=== PATIENT | female | born 1965 | race Caucasian/White ===

== ENCOUNTER 2017-03-23 01:26 | Emergency (ER) | payer OTHER ==
[2017-03-23 01:34] VITALS: RESP 18; TEMP 97.8
[2017-03-23] MEDS ORDERED: ONDANSETRON 4 MG/2 ML VIAL IVP STA (01:51)
[2017-03-23] MEDS ORDERED: LORazepam 2 MG/ML INJ IV STA ×2 (01:51→03:54)
--- NOTE | 2017-03-23 01:57 | ED ---
General Adult HPI - General Chief complaint: Anxiety Stated complaint: anxiety Time Seen by Provider: 03/23/17 01:26 Source: patient, RN notes reviewed Mode of arrival: ambulatory Limitations: no limitations - History of Present Illness Initial comments: This is a 51-year-old female who presents emergency department after having had breast surgery recently. Patient states every night she tried to go to sleep but she can't sleep she feels as though she's worrying about infection and she is not happy with the surgery. Patient states she's got about 6 hours of sleep over the last 3 nights. Patient states she was given some Xanax by her psychiatrist to help with some of her anxiety and it has not helped. Patient now is afraid to take the Xanax because she is afraid his scrotum also some of her other medications and she is afraid to take the pain mostly she's also afraid those might mess up her other medications. Patient denies any shortness of breath or difficulty breathing. Patient denies any chest pain. Patient states both breasts are tender but equally so. Patient does not notice any areas of redness or any drainage or leakage. Patient states she's mildly nauseous but has not vomited she denies any diarrhea but having some loose stools ear patient does not have any abdominal pain patient has no leg swelling or calf tenderness. - Related Data Home Medications Medication Instructions Recorded Confirmed DULoxetine HCL [DULoxetine HCL] 1 tab PO HS 12/28/14 12/28/14 Lisinopril-Hctz 20-25 mg 1 tab PO HS 12/28/14 12/28/14 [Zestoretic 20-25] traZODone HCL [Trazodone HCl] 1 tab PO HS 12/28/14 12/28/14 Previous Rx's Medication Instructions Recorded Naproxen [Naprosyn] 500 mg PO Q12HR PRN #20 tab 12/28/14 traMADol HCl [Ultram] 50 mg PO Q4H PRN #15 tab 12/28/14 Allergies Allergy/AdvReac Type Severity Reaction Status Date / Time No Known Allergies Allergy Verified 03/23/17 01:34 Review of Systems ROS Statement: Those systems with pertinent positive or pertinent negative responses have been documented in the HPI. ROS Other: All systems not noted in ROS Statement are negative. Past Medical History Past Medical History: Hypertension History of Any Multi-Drug Resistant Organisms: None Reported Past Surgical History: Orthopedic Surgery Additional Past Surgical History / Comment(s): Breast reduction in 03/2017 Past Psychological History: Depression Smoking Status: Never smoker Past Alcohol Use History: Rare Past Drug Use History: None Reported General Exam - General Exam Comments Initial Comments: GENERAL: Patient is well-developed and well-nourished. Patient is nontoxic and well- hydrated and is in mild distress. ENT: Neck is soft and supple. No significant lymphadenopathy is noted. Oropharynx is clear. Moist mucous membranes. EYES: The sclera were anicteric and conjunctiva were pink and moist. Extraocular movements were intact and pupils were equal round and reactive to light. Eyelids were unremarkable. PULMONARY: Unlabored respirations. Good breath sounds bilaterally. No audible rales rhonchi or wheezing was noted. CARDIOVASCULAR: There is a regular rate and rhythm without any murmurs gallops or rubs. ABDOMEN: Soft and nontender with normal bowel sounds. No palpable organomegaly was noted. There is no palpable pulsatile mass. SKIN: Skin is clear with no lesions or rashes and otherwise unremarkable. NEUROLOGIC: Patient is alert and oriented x3. Cranial nerves II through XII are grossly intact. Motor and sensory are also intact. Normal speech, volume and content. Symmetrical smile. MUSCULOSKELETAL: Normal extremities with adequate strength and full range of motion. No lower extremity swelling or edema. No calf tenderness. LYMPHATICS: No significant lymphadenopathy is noted PSYCHIATRIC: Patient is very anxious Limitations: no limitations Course Vital Signs 03/23/17 01:29 Temperature 97.8 F Pulse Rate 79 Respiratory 18 Rate Blood Pressure 173/97 O2 Sat by Pulse 99 Oximetry Medical Decision Making - Medical Decision Making EKG shows normal sinus rhythm at 71 bpm IA interval is 176 QRS is 86 QT interval 396 QTC is 4:30. Patient's EKG shows no ST segment elevation or depression. I'll back into reexamine the patient she stated her symptoms had resolved and she felt much better at this time. - Lab Data Result diagrams: 03/23/17 02:35 03/23/17 02:35 Lab Results 03/23/17 03/23/17 Range/Units 02:35 02:35 WBC 8.7 (3.8-10.6) k/uL RBC 3.93 (3.80-5.40) m/uL Hgb 12.0 (11.4-16.0) gm/dL Hct 34.9 (34.0-46.0) % MCV 88.9 (80.0-100.0) fL MCH 30.4 (25.0-35.0) pg MCHC 34.2 (31.0-37.0) g/dL RDW 12.5 (11.5-15.5) % Plt Count 466 H (150-450) k/uL Neutrophils % 63 % Lymphocytes % 28 % Monocytes % 5 % Eosinophils % 2 % Basophils % 1 % Neutrophils # 5.5 (1.3-7.7) k/uL Lymphocytes # 2.5 (1.0-4.8) k/uL Monocytes # 0.4 (0-1.0) k/uL Eosinophils # 0.1 (0-0.7) k/uL Basophils # 0.1 (0-0.2) k/uL Sodium 144 (137-145) mmol/L Potassium 3.8 (3.5-5.1) mmol/L Chloride 108 H (98-107) mmol/L Carbon Dioxide 22 (22-30) mmol/L Anion Gap 14 mmol/L BUN 18 H (7-17) mg/dL Creatinine 0.66 (0.52-1.04) mg/dL Est GFR (MDRD) Af Amer >60 (>60 ml/min/1.73 sqM) Est GFR (MDRD) Non-Af >60 (>60 ml/min/1.73 sqM) Glucose 115 H (74-99) mg/dL Calcium 10.0 (8.4-10.2) mg/dL Total Bilirubin 0.5 (0.2-1.3) mg/dL AST 24 (14-36) U/L ALT 46 (9-52) U/L Alkaline Phosphatase 97 (38-126) U/L Total Protein 7.5 (6.3-8.2) g/dL Albumin 4.4 (3.5-5.0) g/dL Disposition Clinical Impression: Acute anxiety Disposition: HOME SELF-CARE Instructions: Generalized Anxiety Disorder (ED) Referrals: Marco Mantilla MD [Primary Care Provider] - 1-2 days Time of Disposition: 03:54
[2017-03-23] MEDS ORDERED: SODIUM CHLORIDE 0.9% 1,000 ML IV STA (02:44)
[2017-03-23 03:05] LABS: Basophils # (A) 0.1 k/uL (0-0.2); Basophils % (A) 1 %; Eosinophils # (A) 0.1 k/uL (0-0.7); Eosinophils % (A) 2 %; HCT 34.9 % (34.0-46.0); Lymphocytes # (A) 2.5 k/uL (1.0-4.8); Lymphocytes % (A) 28 %; MCH 30.4 pg (25.0-35.0); MCHC 34.2 g/dL (31.0-37.0); MCV 88.9 fL (80.0-100.0); Monocytes # (A) 0.4 k/uL (0-1.0); Monocytes % (A) 5 %; Neutrophils # (A) 5.5 k/uL (1.3-7.7); Neutrophils % (A) 63 %; Platelet Count 466 k/uL (150-450); RBC 3.93 m/uL (3.80-5.40); RDW 12.5 % (11.5-15.5); WBC 8.7 k/uL (3.8-10.6)
[2017-03-23 03:13] LABS: ALT 46 U/L (9-52); AST 24 U/L (14-36); Albumin 4.4 g/dL (3.5-5.0); Alkaline Phosphatase 97 U/L (38-126); Anion Gap 14 mmol/L; Blood Urea Nitrogen 18 mg/dL (7-17); Carbon Dioxide 22 mmol/L (22-30); Chloride 108 mmol/L (98-107); Glucose 115 mg/dL (74-99); Potassium 3.8 mmol/L (3.5-5.1); Sodium 144 mmol/L (137-145); Total Bilirubin 0.5 mg/dL (0.2-1.3); Total Protein 7.5 g/dL (6.3-8.2)
[2017-03-23 04:10] VITALS: BP 133/73; PULSE 75
== END 2017-03-23 04:10 | disposition home or self-care (01) ==
LOC: EC 01:26
DX: F41.9 Anxiety disorder, unspecified (principal); R11.0 Nausea; F32.9 Major depressive disorder, single episode, unspecified; I10 Essential (primary) hypertension; Z79.899 Other long term (current) drug therapy
CPT/HCPCS: 36415; 93005; 80053; 85025; 99283; 96374; 96375; 96376; 96361; J2060; J2405

== ENCOUNTER → 2018-06-04 | Outpatient (CLI) | payer OTHER ==
--- NOTE | 2018-06-04 15:14 | US ---
EXAMINATION TYPE: US transvaginal DATE OF EXAM: 06/04/2018 COMPARISON: NONE CLINICAL HISTORY: R10.12 Female pelvic pain. PMB - spotting for ongoing for 2 months TECHNIQUE: TV. Date of LMP: August 2015 EXAM MEASUREMENTS: Uterus: 7.2 x 4.4 x 3.3cm Endometrial Stripe: 0.3m Right Ovary: 2.3 x 1.4 x 1.5cm Left Ovary: 1.4 x 1.0 x 1.1cm 1. Uterus: Anteverted 1.2cm probable fibroid near fundal portion of endometrium, 2.1cm left sided fibroid seen 2. Endometrium: wnl 3. Right Ovary: wnl 4. Left Ovary: wnl 5. Bilateral Adnexa: wnl 6. Posterior cul-de-sac: wnl IMPRESSION: 1. There is a 1.2 and 2.1 cm hypoechoic nodule within the myometrium near the fundus and left body of the uterus respectively suggestive of uterine fibroid. This could be correlated with MRI as clinical ly warranted to exclude other etiologies.
== END ==
LOC: RADUSWWP 14:18
PROVIDERS: ATTEND Family Medicine
DX: N85.8 Other specified noninflammatory disorders of uterus (principal)
CPT/HCPCS: 76830

== ENCOUNTER → 2019-03-11 | Outpatient (CLI) | payer OTHER ==
[2019-03-11 16:07] LABS: Basophils # (A) 0.1 k/uL (0-0.2); Basophils % (A) 1 %; Eosinophils # (A) 0.3 k/uL (0-0.7); Eosinophils % (A) 4 %; HCT 38.4 % (34.0-46.0); Lymphocytes # (A) 2.4 k/uL (1.0-4.8); Lymphocytes % (A) 34 %; MCH 30.7 pg (25.0-35.0); MCHC 33.8 g/dL (31.0-37.0); MCV 90.9 fL (80.0-100.0); Mean Platelet Volume 7.7; Monocytes # (A) 0.3 k/uL (0-1.0); Monocytes % (A) 4 %; Neutrophils # (A) 3.8 k/uL (1.3-7.7); Neutrophils % (A) 55 %; Platelet Count 328 k/uL (150-450); RBC 4.22 m/uL (3.80-5.40); RDW 12.3 % (11.5-15.5); WBC 6.9 k/uL (3.8-10.6)
== END | disposition home or self-care (01) ==
LOC: LABPAT 15:01
PROVIDERS: ATTEND Orthopaedic Surgery
DX: Z01.818 Encounter for other preprocedural examination (principal); Z01.812 Encounter for preprocedural laboratory examination; M75.42 Impingement syndrome of left shoulder
CPT/HCPCS: 36415; 80051; 85025; 93005

== ENCOUNTER 2019-03-13 09:57 | Day surgery (SDC) | payer OTHER ==
[2019-03-11 10:23] VITALS: BMI 40.7
--- NOTE | 2019-03-12 11:02 | HP ---
HISTORY AND PHYSICAL CHIEF COMPLAINT: Left shoulder pain. 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 She is having difficult time with any attempted overhead use and at night. She has tried anti- inflammatories and therapy without much relief. She notes it significantly limits her. PAST MEDICAL HISTORY: Significant for hypertension and depression. PAST SURGICAL HISTORY: Significant for carpal tunnel surgery, breast reduction. CURRENT MEDICATIONS: 1. Ibuprofen. 2. Lunesta. 3. Cymbalta. 4. Hydrochlorothiazide. 5. Lisinopril. ALLERGIES: She has allergies to MOBIC. FAMILY HISTORY: Noncontributory. SOCIAL HISTORY: Negative for current tobacco or alcohol use. REVIEW OF SYSTEMS: Sixteen-point review of systems otherwise reviewed and is noncontributory. PHYSICAL EXAMINATION: On examination, the patient is approximately 5 feet 3 inches, 230 pounds of endomorphic habitus. HEENT exam is nonfocal. Neck is supple. On examination of her left shoulder, she is tender about the anterior subacromial space. She has mild subacromial crepitus. Active range of motion forward elevation 145 degrees, external rotation with arm at side 70 degrees, internal rotation to L4. Motor strength is 5 minus over 5 for abduction and external rotation. Impingement test, Neer test, and Speed test are positive. Her distal neurovascular exam appears intact in the left upper extremity. MRI report left shoulder 02/04/2019 shows evidence of a high-grade articular surface tear of the supraspinatus along with biceps pathology and acromioclavicular joint arthritis. Moderate glenohumeral joint arthritis is also noted. IMPRESSION: 1. Left shoulder impingement with symptomatic partial-thickness rotator cuff tear. 2. Left proximal bicipital tendinosis. 3. Left acromioclavicular joint arthritis/glenohumeral joint arthritis. RECOMMENDATIONS: I talked to the patient at length regarding her condition along with treatment options. At this point, she remains quite symptomatic despite conservative measures. After thorough discussion, she opts to proceed with surgery. We will plan to proceed with arthroscopic evaluation of the left shoulder with probable subacromial decompression, rotator cuff debridement versus repair, biceps tenotomy, and possible distal clavicular resection. We will likely perform that as an outpatient procedure. Risks and benefits were discussed at length in layman's terms. MMODL / IJN: [id number] /
[~2019-03-13 09:57] MED LIST: DEXAMETHASONE SOD PHOSPHATE 10 MG/ML 1 ML VIAL IV ONE; HYDROmorphone 0.5 MG/0.5 ML SYRINGE IVP PRN; LACTATED RINGERS 1,000 ML IV SCH; MIDAZOLAM 2 MG/2 ML VIAL IV PRN; ONDANSETRON 4 MG/2 ML VIAL IVP ONE; SCOPOLAMINE 1.5MG/72HR PATCH TRANSDERM ONE
[2019-03-13] MEDS ORDERED: LIDOCAINE 1% 20 ML VIAL (10MG/ML) FOR IV START INTRADERMA ONE (10:46)
[2019-03-13] MEDS ORDERED: fentaNYL (PF) 50 MCG/ML 2 ML AMP IV ONE (11:18)
[2019-03-13] MEDS ORDERED: SCOPOLAMINE 1.5MG/72HR PATCH TRANSDERM ONE (11:42)
--- NOTE | 2019-03-13 11:48 | P.ANPRN ---
Procedure Note - Anesthesia - Nerve Block Performed Left Interscalene Single Time Out Performed: Yes Date of Procedure: 03/13/19 Procedure Start Time: :18 Procedure Stop Time: :25 Location of Patient: PreOp Indication: Acute Post-Operative Pain, Dx/Pain Location, Requested by Surgeon Sedation Type: Sedate with meaningful contact maintained Preparation: Sterile Prep Position: Supine Catheter: None Needle Types: Pajunk Needle Gauge: 21 Ultrasound used to visualize needle placement: Yes Ultrasound used to observe medication spread: Yes Injectate: 0.5% Ropivacaine (see comment for volume) (20ml) Blood Aspirated: No Pain Paresthesia on Injection Noted: No Resistance on Injection: Normal Image Stored and Saved: Yes Events: Uneventful and Well Tolerated
[2019-03-13] MEDS ORDERED: ROCURONIUM BROMIDE 10 MG/ML 10 ML VIAL IV ONE (12:02)
[2019-03-13] MEDS ORDERED: PHENYLEPHRINE-0.9% NACL SYG 1 MG/10 ML SYRINGE ONE (12:02)
[2019-03-13] MEDS ORDERED: GLYCOPYRROLATE 0.2 MG/ML 2 ML VIAL ONE (12:02)
[2019-03-13] MEDS ORDERED: PROPOFOL 10 MG/ML 20 ML VIAL IV ONE (12:02)
[2019-03-13] MEDS ORDERED: SUCCINYLCHOLINE CHLORIDE 100 MG/5 ML SYR IV ONE (12:02)
[2019-03-13] MEDS ORDERED: LIDOCAINE 1% INJ 10MG/ML (20 ML MDV) ONE (12:02)
[2019-03-13] MEDS ORDERED: MIDAZOLAM 2 MG/2 ML VIAL ONE (12:02)
[2019-03-13] MEDS ORDERED: EPINEPHrine (PF) 1 ML in SODIUM CHLORIDE 0.9% IRRIGATIO 3,000 ML IRRIGATION ONE ×8 (12:02)
[2019-03-13] MEDS ORDERED: LACTATED RINGERS 1,000 ML IV ONE (13:38)
--- NOTE | 2019-03-13 13:38 | P.OP ---
Date of Procedure: 03/13/19 Preoperative Diagnosis: left shoulder impingement Postoperative Diagnosis: High-grade partial-thickness tear supraspinatus1 cm, acromioclavicular synovitis/arthritis, high-grade partial-thickness tear long head of the bicepsintra-articular Procedure(s) Performed: Left shoulder arthroscopic subacromial decompression/rotator cuff repair/distal clavicular resection/biceps tenotomy Implants: Arthrex 5.5 mm swivel lock anchor 1 Anesthesia: KAYLA, regional Surgeon: Mario Kumar Estimated Blood Loss (ml): 10 Pathology: none sent Condition: stable Disposition: PACU Indications for Procedure: The patient's a 53-year-old female who presents with progressive left shoulder pain despite conservative measures. A discussion of the risks and benefits of operative intervention versus continued conservative measures was made with patient. She opted to proceed with surgery. Operative risks to include infection, neurovascular injury, development of blood clots, possible incomplete resolution of symptoms, possible worsening of symptoms, possible tendon rerupture, possible postoperative stiffness and need for subsequent procedures was discussed. Informed consent was obtained. Operative Findings: As below Description of Procedure: The patient was brought to the operating room, and after induction of general anesthesia was placed in a beachchair position. A preoperative interscalene block was placed for postoperative analgesia. I examined the left shoulder. There was no gross block to passive motion or gross glenohumeral instability. The left upper extremity was prepped and draped in normal fashion. The bony outlines the acromion, distal clavicle, and coracoid process were outlined with a skin marker. The glenohumeral joint was inflated with 50 mL of saline utilizing a spinal needle from posterior approach. A posterior portal was made through a 5 mm skin incision 1 cm medial and inferior to the posterior lateral border time. A blunt trocar was used to easily into the joint. Diagnostic arthroscopy was performed. An anterior portal was made just lateral to the coracoid process entering the joint above the subscapularis tendon. The subscapularis tendon appeared to be intact. Anterior labrum was intact. The inferior recess was inspected. The posterior labrum was intact. There was a high-grade partial-thickness tear of the long head of the biceps involving interarticular portion. It was elected to proceed with release at this point. This was released from the superior labrum with electrocautery and was allowed to retract to the bicipital groove. On inspection the rotator cuff, a high- grade partial-thickness tear involving the anterior aspect the supraspinatus was noted. This involved 80% of the tendon thickness. The remaining tissue was taken down with a motorized shaver completing the tear. The posterior portion of the cuff appeared intact. The arthroscope was placed into the subacromial space. A lateral portal was made 2 centimeters inferior to the anterior lateral border of the acromion. The rotator cuff was easily brought back to the greater tuberosity. The soft tissue on the undersurface of the acromion was debrided with a motorized shaver and electrocautery clearly defining the anterior medial and lateral borders as well as the distal clavicle. An anterior inferior acromioplasty was performed with a motorized suzanne starting anterolateral, then extending this posteriorly, then extending this medially. I converted to a flat acromion and this was verified in the posterior and lateral viewing portals. There was impingement of the distal clavicle in the subacromial space along with acromioclavicular arthritis therefore the distal 4 mm clavicle was resected with a motorized bur. The greater tuberosity was lightly decorticating with a shaver down to a bleeding bony surface. A #2 fiber tape was passed through the rotator cuff with a scorpion suture passer along with a fiber link. A lateral anchor was placed after appropriate tensioning. Good purchase was obtained. Final arthroscopic view showed adequate compression at the footprint. The arthroscope was then removed. The portals were closed with simple 3-0 nylon sutures. A sterile dressing was applied in addition to a sling. The patient was then awoken from general anesthesia and transferred to recovery room in good condition. Blood loss was estimated at 10 mL. No complications were incurred. Sponge and needle counts were correct in the case.
[2019-03-13 13:46] VITALS: TEMP 98
[2019-03-13] MEDS ORDERED: KETOROLAC 30 MG/ML 1 ML VIAL IVP ONE ×2 (14:08→14:12)
[2019-03-13 15:10] VITALS: RESP 18
[2019-03-13 15:58] VITALS: BP 118/68; PULSE 73
== END 2019-03-13 16:13 | disposition home or self-care (01) ==
LOC: OR 09:57
PROVIDERS: ATTEND Orthopaedic Surgery
DX: M75.112 Incomplete rotator cuff tear or rupture of left shoulder, not specified as traumatic (principal); M65.812 Other synovitis and tenosynovitis, left shoulder; M19.012 Primary osteoarthritis, left shoulder; S46.112A Strain of muscle, fascia and tendon of long head of biceps, left arm, initial encounter; I10 Essential (primary) hypertension; F32.9 Major depressive disorder, single episode, unspecified; Z88.6 Allergy status to analgesic agent; Z98.890 Other specified postprocedural states; Z79.1 Long term (current) use of non-steroidal anti-inflammatories (NSAID); Z79.899 Other long term (current) drug therapy; X58.XXXA Exposure to other specified factors, initial encounter
CPT/HCPCS: 76942; 64415; 29827; 29826; 29824; C1713 ×2; C1894; J2250; J1100; J0690; J2405; J0171; J2001; J3010; J1885; J2370; J0330; J2704; J1170

== ENCOUNTER 2019-10-10 14:50 | Inpatient (IN) | payer OTHER ==
[2019-10-10] MEDS ORDERED: SODIUM CHLORIDE 0.9% 500 ML 500 ML IV STA (15:12)
[2019-10-10] MEDS ORDERED: LORazepam 2 MG/ML INJ IV STA (15:13)
--- NOTE | 2019-10-10 15:16 | ED ---
SOB HPI - General Chief Complaint: Shortness of Breath Stated Complaint: SOB Time Seen by Provider: 10/10/19 15:01 Source: patient Mode of arrival: ambulatory Limitations: no limitations - History of Present Illness Initial Comments: patient is a 53-year-old female presenting to the emergency Department with complaints of shortness of breath that started last night. Patient states she was doing her normal evening housework when she noticed that she was a little bit short of breath during these activities. Patient states she was able to fall sleep but did wake up a few times last night feeling like she cannot get a deep breath. Patient states she woke up feeling about the same but did go to work. Patient is a respiratory therapist here at the hospital. Patient states she has been trying to work throughout the day but noticed that she was getting short of breath pushing a patient down the smiley. Patient states she is not normally like this. She denies history of asthma, COPD, she is a nonsmoker. She states she does have a history of anxiety and does take medication for this however has not had a anxiety attack and many years. Patient denies recent fever, chills, nausea, vomiting. She denies any abdominal pain. She states her chest does feel tight, pressure feeling, but no pains.she denies any new medications in the past few weeks. She has no further complaints at this time. Upon arrival to the ER, her vital signs are stable. - Related Data Home Medications Medication Instructions Recorded Confirmed Bisoprolol [Zebeta] 2.5 mg PO QAM 03/11/19 03/13/19 Cholecalciferol [Vitamin D3 (25 1,000 unit PO DAILY 03/11/19 03/13/19 Mcg = 1000 Iu)] DULoxetine HCL [Cymbalta] 90 mg PO HS 03/11/19 03/13/19 Hydrochlorothiazide 1 tab PO DAILY 03/11/19 03/13/19 Ibuprofen/Diphenhydramine HCl 1 each PO HS 03/11/19 03/13/19 [Advil Pm Liqui-Gels] Melatonin 10 mg PO HS 03/11/19 03/13/19 Previous Rx's Medication Instructions Recorded HYDROcodone/APAP 7.5-325MG [Stevens 1 tab PO Q4H PRN 7 Days #28 tab 03/13/19 7.5-325] Allergies Allergy/AdvReac Type Severity Reaction Status Date / Time meloxicam [From Mobic] Allergy Unknown Verified 10/10/19 14:58 Review of Systems ROS Statement: Those systems with pertinent positive or pertinent negative responses have been documented in the HPI. ROS Other: All systems not noted in ROS Statement are negative. Past Medical History Past Medical History: Hypertension, Osteoarthritis (OA) History of Any Multi-Drug Resistant Organisms: None Reported Past Surgical History: Breast Surgery, Orthopedic Surgery Additional Past Surgical History / Comment(s): Breast reduction, bilateral carpa l tunnel release, A-1 gerhard release. Past Anesthesia/Blood Transfusion Reactions: Motion Sickness, Postoperative Nausea & Vomiting (PONV) Past Psychological History: Anxiety, Depression Past Alcohol Use History: Rare Past Drug Use History: None Reported - Past Family History Mother Family Medical History: No Reported History General Exam - General Exam Comments Initial Comments: GENERAL: Patient is well-developed and well-nourished. Patient is nontoxic and in no acute distress, but seems mildly anxious. HEAD: Atraumatic, normocephalic. EYES: Pupils equal round and reactive to light, extraocular movements intact, sclera anicteric, conjunctiva are normal. Eyelids were unremarkable. ENT: TMs normal, nares patent, oropharynx clear without exudates. Moist mucous membranes. NECK: Normal range of motion, supple without lymphadenopathy or JVD. LUNGS: Unlabored respirations. Breath sounds clear to auscultation bilaterally and equal. No wheezes rales or rhonchi. HEART: Regular rate and rhythm without murmurs, rubs or gallops. ABDOMEN: Soft, nontender, normoactive bowel sounds. No guarding, no rebound. No masses appreciated. : Deferred MUSCULOSKELETAL: Normal extremities with adequate strength and normal range of motion, no pitting or edema. No clubbing or cyanosis. NEUROLOGICAL: Patient is alert and oriented x 3. Motor and sensory are also intact. Cranial nerves II through XII grossly intact. Symmetrical smile. Normal speech, normal gait. PSYCH: Normal mood, normal affect. SKIN: Warm, Dry, normal turgor, no rashes or lesions noted. Limitations: no limitations Course Vital Signs 10/10/19 10/10/19 10/10/19 14:54 16:19 17:17 Temperature 98.1 F 98.1 F 98.3 F Pulse Rate 94 77 81 Respiratory 22 19 18 Rate Blood Pressure 158/90 137/100 119/76 O2 Sat by Pulse 98 96 97 Oximetry Medical Decision Making - Medical Decision Making patient is a 53-year-old female presenting for chest tightness, shortness of breath started last night. Her vital signs are stable she does have a history of anxiety. EKG showed no acute ischemia, normal sinus rhythm. Chest x-ray shows no acute process. Lab work shows normal white count, d-dimer is normal, troponin is normal, there is some mild elevation in liver enzymes, no other acute findings. Patient was given small amount of Ativan, fluids. She states she does feel some mild improvement. 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 I did recommend her being admitted observation for cardiac follow-up. Patient is agreeable with this plan of care. Patient will be admitted to Dr. Mantilla, serial troponins, cardiac consult. Case discussed with Dr. Acosta. - Lab Data Result diagrams: 10/10/19 15:24 10/10/19 15:24 Lab Results 10/10/19 10/10/19 10/10/19 Range/Units 15:24 15:24 15:24 WBC 6.5 (3.8-10.6) k/uL RBC 4.34 (3.80-5.40) m/uL Hgb 13.4 (11.4-16.0) gm/dL Hct 39.7 (34.0-46.0) % MCV 91.4 (80.0-100.0) fL MCH 30.8 (25.0-35.0) pg MCHC 33.7 (31.0-37.0) g/dL RDW 12.5 (11.5-15.5) % Plt Count 322 (150-450) k/uL Neutrophils % 52 % Lymphocytes % 37 % Monocytes % 5 % Eosinophils % 3 % Basophils % 1 % Neutrophils # 3.4 (1.3-7.7) k/uL Lymphocytes # 2.4 (1.0-4.8) k/uL Monocytes # 0.3 (0-1.0) k/uL Eosinophils # 0.2 (0-0.7) k/uL Basophils # 0.1 (0-0.2) k/uL PT 9.6 (9.0-12.0) sec INR 0.9 (<1.2) APTT 22.2 (22.0-30.0) sec D-Dimer 0.34 (<0.60) mg/L FEU Sodium 138 (137-145) mmol/L Potassium 4.3 (3.5-5.1) mmol/L Chloride 107 (98-107) mmol/L Carbon Dioxide 21 L (22-30) mmol/L Anion Gap 10 mmol/L BUN 17 (7-17) mg/dL Creatinine 0.75 (0.52-1.04) mg/dL Est GFR (CKD-EPI)AfAm >90 (>60 ml/min/1.73 sqM) Est GFR (CKD-EPI)NonAf >90 (>60 ml/min/1.73 sqM) Glucose 118 H (74-99) mg/dL Calcium 9.9 (8.4-10.2) mg/dL Magnesium 2.0 (1.6-2.3) mg/dL Total Bilirubin 0.6 (0.2-1.3) mg/dL AST 47 H (14-36) U/L ALT 50 H (4-34) U/L Alkaline Phosphatase 73 (38-126) U/L Troponin I (0.000-0.034) ng/mL NT-Pro-B Natriuret Pep pg/mL Total Protein 7.7 (6.3-8.2) g/dL Albumin 4.8 (3.5-5.0) g/dL 10/10/19 10/10/19 Range/Units 15:24 15:24 WBC (3.8-10.6) k/uL RBC (3.80-5.40) m/uL Hgb (11.4-16.0) gm/dL Hct (34.0-46.0) % MCV (80.0-100.0) fL MCH (25.0-35.0) pg MCHC (31.0-37.0) g/dL RDW (11.5-15.5) % Plt Count (150-450) k/uL Neutrophils % % Lymphocytes % % Monocytes % % Eosinophils % % Basophils % % Neutrophils # (1.3-7.7) k/uL Lymphocytes # (1.0-4.8) k/uL Monocytes # (0-1.0) k/uL Eosinophils # (0-0.7) k/uL Basophils # (0-0.2) k/uL PT (9.0-12.0) sec INR (<1.2) APTT (22.0-30.0) sec D-Dimer (<0.60) mg/L FEU Sodium (137-145) mmol/L Potassium (3.5-5.1) mmol/L Chloride (98-107) mmol/L Carbon Dioxide (22-30) mmol/L Anion Gap mmol/L BUN (7-17) mg/dL Creatinine (0.52-1.04) mg/dL Est GFR (CKD-EPI)AfAm (>60 ml/min/1.73 sqM) Est GFR (CKD-EPI)NonAf (>60 ml/min/1.73 sqM) Glucose (74-99) mg/dL Calcium (8.4-10.2) mg/dL Magnesium (1.6-2.3) mg/dL Total Bilirubin (0.2-1.3) mg/dL AST (14-36) U/L ALT (4-34) U/L Alkaline Phosphatase (38-126) U/L Troponin I <0.012 (0.000-0.034) ng/mL NT-Pro-B Natriuret Pep 131 pg/mL Total Protein (6.3-8.2) g/dL Albumin (3.5-5.0) g/dL - EKG Data EKG Comments: normal sinus rhythm, normal ECG, no signs of acute ischemia, ventricular rate 75, OH interval 162, QT 390. Disposition Clinical Impression: Chest tightness, Dyspnea Disposition: ADMITTED IP TO THIS [facility] Condition: Stable Is patient prescribed a controlled substance at d/c from ED?: No Referrals: Marco Mantilla MD [Primary Care Provider] - 1-2 days Decision Date: 10/10/19 Decision Time: 16:49
[2019-10-10 15:53] LABS: Basophils # (A) 0.1 k/uL (0-0.2); Basophils % (A) 1 %; Eosinophils # (A) 0.2 k/uL (0-0.7); Eosinophils % (A) 3 %; HCT 39.7 % (34.0-46.0); HGB 13.4 gm/dL (11.4-16.0); Lymphocytes # (A) 2.4 k/uL (1.0-4.8); Lymphocytes % (A) 37 %; MCH 30.8 pg (25.0-35.0); MCHC 33.7 g/dL (31.0-37.0); MCV 91.4 fL (80.0-100.0); Mean Platelet Volume 8.2; Monocytes # (A) 0.3 k/uL (0-1.0); Monocytes % (A) 5 %; Neutrophils # (A) 3.4 k/uL (1.3-7.7); Neutrophils % (A) 52 %; Platelet Count 322 k/uL (150-450); RBC 4.34 m/uL (3.80-5.40); RDW 12.5 % (11.5-15.5); WBC 6.5 k/uL (3.8-10.6)
[2019-10-10 16:06] LABS: ALT 50 U/L (4-34); AST 47 U/L (14-36); African American GFR (CKD) >90 (>60 ml/min/1.73 sqM); Albumin 4.8 g/dL (3.5-5.0); Alkaline Phosphatase 73 U/L (38-126); Anion Gap 10 mmol/L; Blood Urea Nitrogen 17 mg/dL (7-17); Calcium 9.9 mg/dL (8.4-10.2); Carbon Dioxide 21 mmol/L (22-30); Chloride 107 mmol/L (98-107); Glucose 118 mg/dL (74-99); Non-African American GFR(CKD) >90 (>60 ml/min/1.73 sqM); Potassium 4.3 mmol/L (3.5-5.1); Sodium 138 mmol/L (137-145); Total Bilirubin 0.6 mg/dL (0.2-1.3); Total Protein 7.7 g/dL (6.3-8.2)
--- NOTE | 2019-10-10 16:17 | XR ---
EXAMINATION TYPE: XR chest 2V DATE OF EXAM: 10/10/2019 COMPARISON: NONE HISTORY: Short of breath TECHNIQUE: 2 views FINDINGS: Heart and mediastinum are normal. Lungs are clear. Diaphragm is normal. Bony thorax appears normal. IMPRESSION: Normal chest.
[2019-10-10 16:19] LABS: D-Dimer 0.34 mg/L FEU (<0.60); INR 0.9 (<1.2); Partial Thromboplastin Time 22.2 sec (22.0-30.0); Prothrombin Time 9.6 sec (9.0-12.0)
[2019-10-10] MEDS ORDERED: NITROGLYCERIN SL TABS 0.4 MG TAB SUBLINGUAL PRN (16:49)
[2019-10-10] MEDS ORDERED: clonazePAM 0.5 MG TAB PO PRN (18:41)
[2019-10-10] MEDS: MELATONIN 5 MG TABLET PO SCH (20:40)
[2019-10-10] MEDS: hydroCHLOROthiazide 25 MG TAB PO SCH (20:40)
[2019-10-10] MEDS: BISOPROLOL 5 MG TAB PO SCH (20:40)
[2019-10-10] MEDS: DULoxetine HCL 30 MG CAPSULE.DR PO SCH (20:40)
[2019-10-10] MEDS ORDERED: ASPIRIN 81 MG PO SCH (21:00)
[2019-10-10] MEDS ORDERED: DULoxetine HCL 60 MG CAPSULE.DR PO SCH (21:00)
[2019-10-11 08:19] LABS: Cholesterol 193 mg/dL (<200); HDL Cholesterol 43 mg/dL (40-60); LDL Cholesterol,Calculated 119 mg/dL (0-99); Triglycerides 154 mg/dL (<150)
--- NOTE | 2019-10-11 09:40 | P.HPIM ---
History of Present Illness H&P Date: 10/11/19 Chief Complaint: SOB this is a 53 y/o WF WELL KNOW TO THE PRACTICE WITH A H/O ANXITY. AT WORK YESTERDAY SHE BECAME SOB AND HAS HAD THIS FOR THE PAST DAY. IT SEEed to have worsened and she was seen in the ER and admitted for OBV and cardioac eval. She has no c/o this am. Review of Systems All systems: negative Past Medical History Past Medical History: Hypertension, Osteoarthritis (OA) History of Any Multi-Drug Resistant Organisms: None Reported Past Surgical History: Breast Surgery, Orthopedic Surgery Additional Past Surgical History / Comment(s): Breast reduction, bilateral carpal tunnel release, A-1 gerhard release. left rotator cuff repair Past Anesthesia/Blood Transfusion Reactions: Motion Sickness, Postoperative Nausea & Vomiting (PONV) Past Psychological History: Anxiety, Depression Smoking Status: Never smoker Past Alcohol Use History: Rare Past Drug Use History: None Reported - Past Family History Mother Family Medical History: No Reported History Medications and Allergies Home Medications Medication Instructions Recorded Confirmed Type DULoxetine HCL [Cymbalta] 30 mg PO HS 03/11/19 10/10/19 History Melatonin 10 mg PO HS 03/11/19 10/10/19 History Aspirin EC [Ecotrin Low Dose] 81 mg PO Q48H 10/10/19 10/10/19 History Bisoprolol Fumarate [Zebeta] 10 mg PO HS 10/10/19 10/10/19 History DULoxetine HCL [Cymbalta] 60 mg PO HS 10/10/19 10/10/19 History clonazePAM [KlonoPIN] 0.5 mg PO DAILY PRN 10/10/19 10/10/19 History hydroCHLOROthiazide [Hydrodiuril] 25 mg PO HS 10/10/19 10/10/19 History Allergies Allergy/AdvReac Type Severity Reaction Status Date / Time meloxicam [From Mobic] Allergy Unknown Verified 10/10/19 17:59 Physical Exam Vitals: Vital Signs Temp Pulse Pulse Resp BP BP Pulse Ox 10/11/19 07:50 97.8 F 69 14 159/103 99 10/11/19 03:00 98 F 79 18 142/85 96 10/10/19 21:00 97.9 F 62 18 148/89 98 10/10/19 18:34 96 10/10/19 18:09 98.0 F 83 18 145/89 98 10/10/19 17:17 98.3 F 81 18 119/76 97 10/10/19 16:19 98.1 F 77 19 137/100 96 10/10/19 14:54 98.1 F 94 22 158/90 98 Intake and Output 10/10/19 10/11/19 10/11/19 22:59 06:59 14:59 Intake Total 0 Balance 0 Intake: Oral 0 Other: Voiding Method Toilet Toilet Toilet # Voids 1 1 Weight 111.13 kg GENERAL: awake alert, well-nourished and in no acute distress. HEAD: Atraumatic, normocephalic. EYES: Pupils equal round and reactive to light, extraocular movements intact, sclera anicteric, conjunctiva are normal. ENT:nares patent, oropharynx clear without exudates. Moist mucous membranes. NECK: Normal range of motion, supple without lymphadenopathy or JVD, no thyromegaly LUNGS: Breath sounds clear to auscultation bilaterally and equal. No wheezes rales or rhonchi. HEART: Regular rate and rhythm without murmurs, rubs or gallops.S1S2 Normal ABDOMEN: Soft, nontender, normoactive bowel sounds. No guarding, no rebound. No masses appreciated. EXTREMITIES: Normal range of motion, +1 non pitting edema. No clubbing or cyanosis. NEUROLOGICAL: Cranial nerves II through XII grossly intact. Normal speech, normal gait. PSYCH: normal mood, normal affect. SKIN: Warm, Dry, normal turgor, no rashes or lesions noted. Results CBC & Chem 7: 10/10/19 15:24 10/10/19 15:24 Labs: Abnormal Lab Results - Last 24 Hours (Table) 10/10/19 10/11/19 Range/Units 15:24 07:33 Carbon Dioxide 21 L (22-30) mmol/L Glucose 118 H (74-99) mg/dL AST 47 H (14-36) U/L ALT 50 H (4-34) U/L Triglycerides 154 H (<150) mg/dL LDL Cholesterol, Calc 119 H (0-99) mg/dL Chest x-ray: report reviewed Thrombosis Risk Factor Assmnt - DVT/VTE Prophylaxis DVT/VTE Prophylaxis: Mechanical Prophylaxis ordered - Choose All That Apply Any of the Below Risk Factors Present?: Yes Each Factor Represents 1 point: Age 41-60 years Other Risk Factors: No Thrombosis Risk Factor Assessment Total Risk Factor Score: 1 Thrombosis Risk Factor Assessment Level: Low Risk Assessment and Plan (1) Anxiety Current Visit: Yes Status: Acute Code(s): F41.9 - ANXIETY DISORDER, UNSPECIFIED SNOMED Code(s): 55389308 (2) Essential (primary) hypertension Current Visit: Yes Status: Acute Code(s): I10 - ESSENTIAL (PRIMARY) HYPERTENSION SNOMED Code(s): 44904547 (3) Chest pain Current Visit: Yes Status: Acute Code(s): R07.9 - CHEST PAIN, UNSPECIFIED SNOMED Code(s): 80775635 (4) Chest tightness Current Visit: Yes Status: Acute Code(s): R07.89 - OTHER CHEST PAIN SNOMED Code(s): 51802761 (5) Dyspnea Current Visit: Yes Status: Acute Code(s): R06.00 - DYSPNEA, UNSPECIFIED SNOMED Code(s): 587675500 Plan: so far labs are normal. SHe feels muche isabel today but will wait on cardiology evaluation repeat labs this am' reevaluate or D/C later if cleared and no significant findings
[2019-10-11] MEDS: ASPIRIN 325 MG TAB PO SCH (10:39)
--- NOTE | 2019-10-11 10:47 | P.CRDCN ---
History of Present Illness Consult date: 10/11/19 Chief complaint: Chest pain/shortness of breath History of present illness: This is a very pleasant 53-year-old female patient who works here as a respiratory therapist with a past medical history significant for hypertension as well as anxiety presented to the emergency room complaining of chest discomfort as well as shortness of breath. She stated that for the last several days she has been experiencing shortness of breath with exertion and lately she noticed some chest discomfort associated with it. The patient does have it seems to be severe anxiety and she was unable to tell if her symptoms are related to anxiety or no. She does not have any prior cardiac history and never seen by any pick up and delivery driver in the past. No history of coronary artery disease. No history of congestive heart failure. She underwent a workup here in the hospital including EKG showing sinus rhythm without any significant ST or T-wave abnormalities and also cardiac enzymes came in to be unremarkable. The chest x- ray did not show any acute abnormalities. During her hospital stay, the pressure has been not well-controlled on the current dose of bisoprolol as well as hydrochlorothiazide. I'm going to add lisinopril at 5 mg daily to the current medical regimen. Also I advised the patient to undergo a stress test and echocardiogram. Past Medical History Past Medical History: Hypertension, Osteoarthritis (OA) History of Any Multi-Drug Resistant Organisms: None Reported Past Surgical History: Breast Surgery, Orthopedic Surgery Additional Past Surgical History / Comment(s): Breast reduction, bilateral carpal tunnel release, A-1 gerhard release. left rotator cuff repair Past Anesthesia/Blood Transfusion Reactions: Motion Sickness, Postoperative Nausea & Vomiting (PONV) Past Psychological History: Anxiety, Depression Smoking Status: Never smoker Past Alcohol Use History: Rare Past Drug Use History: None Reported - Past Family History Mother Family Medical History: No Reported History Medications and Allergies Home Medications Medication Instructions Recorded Confirmed Type DULoxetine HCL [Cymbalta] 30 mg PO HS 03/11/19 10/10/19 History Melatonin 10 mg PO HS 03/11/19 10/10/19 History Aspirin EC [Ecotrin Low Dose] 81 mg PO Q48H 10/10/19 10/10/19 History Bisoprolol Fumarate [Zebeta] 10 mg PO HS 10/10/19 10/10/19 History DULoxetine HCL [Cymbalta] 60 mg PO HS 10/10/19 10/10/19 History clonazePAM [KlonoPIN] 0.5 mg PO DAILY PRN 10/10/19 10/10/19 History hydroCHLOROthiazide [Hydrodiuril] 25 mg PO HS 10/10/19 10/10/19 History Allergies Allergy/AdvReac Type Severity Reaction Status Date / Time meloxicam [From Convertigo] Allergy Unknown Verified 10/10/19 17:59 Physical Exam Vitals: Vital Signs Temp Pulse Pulse Resp BP BP Pulse Ox 10/11/19 07:50 97.8 F 69 14 159/103 99 10/11/19 03:00 98 F 79 18 142/85 96 10/10/19 21:00 97.9 F 62 18 148/89 98 10/10/19 18:34 96 10/10/19 18:09 98.0 F 83 18 145/89 98 10/10/19 17:17 98.3 F 81 18 119/76 97 10/10/19 16:19 98.1 F 77 19 137/100 96 10/10/19 14:54 98.1 F 94 22 158/90 98 Intake and Output 10/10/19 10/11/19 10/11/19 22:59 06:59 14:59 Intake Total 0 Balance 0 Intake: Oral 0 Other: Voiding Method Toilet Toilet Toilet # Voids 1 1 Weight 111.13 kg - Constitutional General appearance: no acute distress - Respiratory Respiratory: bilateral: CTA - Cardiovascular Rhythm: regular Heart sounds: normal: S1, S2 Results 10/10/19 15:24 10/10/19 15:24 Cardiac Enzymes 10/10/19 10/10/19 10/10/19 Range/Units 15:24 15:24 17:33 AST 47 H (14-36) U/L Troponin I <0.012 <0.012 (0.000-0.034) ng/mL 10/10/19 Range/Units 20:00 AST (14-36) U/L Troponin I <0.012 (0.000-0.034) ng/mL Coagulation 10/10/19 Range/Units 15:24 PT 9.6 (9.0-12.0) sec APTT 22.2 (22.0-30.0) sec Lipids 10/11/19 Range/Units 07:33 Triglycerides 154 H (<150) mg/dL Cholesterol 193 (<200) mg/dL HDL Cholesterol 43 (40-60) mg/dL CBC 10/10/19 Range/Units 15:24 WBC 6.5 (3.8-10.6) k/uL RBC 4.34 (3.80-5.40) m/uL Hgb 13.4 (11.4-16.0) gm/dL Hct 39.7 (34.0-46.0) % Plt Count 322 (150-450) k/uL Comprehensive Metabolic Panel 10/10/19 Range/Units 15:24 Sodium 138 (137-145) mmol/L Potassium 4.3 (3.5-5.1) mmol/L Chloride 107 (98-107) mmol/L Carbon Dioxide 21 L (22-30) mmol/L BUN 17 (7-17) mg/dL Creatinine 0.75 (0.52-1.04) mg/dL Glucose 118 H (74-99) mg/dL Calcium 9.9 (8.4-10.2) mg/dL AST 47 H (14-36) U/L ALT 50 H (4-34) U/L Alkaline Phosphatase 73 (38-126) U/L Total Protein 7.7 (6.3-8.2) g/dL Albumin 4.8 (3.5-5.0) g/dL Current Medications Generic Name Dose Route Start Last Admin Trade Name Freq PRN Reason Stop Dose Admin Aspirin 325 mg 10/11/19 09:00 10/11/19 10:39 Aspirin PO 325 mg DAILY JOSIANE Administration Bisoprolol Fumarate 10 mg 10/10/19 21:00 10/10/19 20:40 Zebeta PO 10 mg HS JOSIANE Administration Clonazepam 0.5 mg 10/10/19 18:41 Klonopin PO DAILY PRN Anxiety Duloxetine HCl 90 mg 10/10/19 21:00 10/10/19 20:40 Cymbalta PO 90 mg HS JOSIANE Administration Hydrochlorothiazide 25 mg 10/10/19 21:00 10/10/19 20:40 Hydrodiuril PO 25 mg HS JOSIANE Administration Melatonin 10 mg 10/10/19 21:00 10/10/19 20:40 Melatonin PO 10 mg HS JOSIANE Administration Nitroglycerin 0.4 mg 10/10/19 16:49 Nitrostat SUBLINGUAL Q5M PRN Chest Pain Intake and Output 10/10/19 10/11/19 10/11/19 22:59 06:59 14:59 Intake Total 0 Balance 0 Intake: Oral 0 Other: Voiding Method Toilet Toilet Toilet # Voids 1 1 Weight 111.13 kg 10/10/19 15:24 10/10/19 15:24 Assessment and Plan Assessment: Assessment #1 atypical chest discomfort #2 shortness of breath with exertion #3 hypertension Plan #1 acute coronary event was ruled out #2 obtain an echocardiogram was Doppler #3 stress test #4 follow-up with the patient
[2019-10-11] MEDS ORDERED: lisinopriL 5 MG TAB PO STA (12:24)
[2019-10-11] MEDS: hydroCHLOROthiazide 25 MG TAB PO SCH (20:31)
[2019-10-11] MEDS: BISOPROLOL 5 MG TAB PO SCH (20:32)
[2019-10-11] MEDS: MELATONIN 5 MG TABLET PO SCH (20:32)
[2019-10-11] MEDS: DULoxetine HCL 30 MG CAPSULE.DR PO SCH (20:32)
[2019-10-12 08:09] VITALS: RESP 16
[2019-10-12] MEDS: ASPIRIN 325 MG TAB PO SCH (08:56)
[2019-10-12] MEDS ORDERED: lisinopriL 5 MG TAB PO SCH (09:00)
--- NOTE | 2019-10-12 13:35 | ECHOS ---
STRESS ECHOCARDIOGRAM LUMASON: - Vial INDICATIONS: Chest pain. MEDICATIONS: BASELINE HEART RATE: 72 BASELINE BLOOD PRESSURE: 129/48 MAXIMUM HEART RATE: 143 MAXIMUM BLOOD PRESSURE: 202/68 85% MPHR: 140 100% MPHR: 165 METS: 9.9 MAXIMUM STAGE REACHED: 3 TOTAL EXERCISE TIME: 8:15 CLINICAL INFORMATION: Chest pain. Baseline EKG shows sinus rhythm, normal axis, normal intervals. Patient exercised on Oneal protocol for a total of 8 minutes achieving 9 METS, 86% of predicted maximal heart rate without chest pain or diagnostic ST-segment depression. Baseline echo shows normal left ventricular size, wall motion and systolic function. Postexercise, there is normal hyperdynamic response of all of myocardium noted. CONCLUSIONS: 1. Average exercise tolerance. 2. Negative stress test by EKG criteria. 3. Negative stress echo. Again Lumason contrast was used to improve endocardial visualization. MMODL / IJN: [id number] /
[2019-10-12 15:36] VITALS: BP 116/73; PULSE 83; TEMP 98
--- NOTE | 2019-10-12 17:28 | P.DS ---
Providers Date of admission: 10/12/19 11:27 Expected date of discharge: 10/12/19 Attending physician: Marco Mantilla Consults: 10/10/19 16:49 Consult Physician Urgent Consulting Provider: [facility] Consult Reason/Comments: chest pain Do you want consulting provider notified?: Yes Primary care physician: Marco Mantilla - Discharge Diagnosis(es) (1) Anxiety Current Visit: Yes Status: Acute (2) Chest pain Current Visit: Yes Status: Acute (3) Chest tightness Current Visit: Yes Status: Acute (4) Dyspnea Current Visit: Yes Status: Acute (5) Essential (primary) hypertension Current Visit: Yes Status: Acute Hospital Course: Patient presented with chest pain shortness of breath troponins were negative echo was within normal limits stress echo was within normal limits Vital signs stable patient is afebrile General: [Patient awake, alert and oriented times 3. Patient in no acute distress.] HEENT: [PERRL. EOMI. No pharyngeal erythema or exudate.] Neck: [No adenopathy.] Cardiac: [Heart regular in rate and rhythm. No S3. No S4. No clicks, rubs. No murmur.] Lungs: [Clear to auscultation bilaterally.] Abdomen: [No mass. No organomegaly. Bowel sounds presnt and normoactive in all 4 quadrants.] Extremes: [No edema no cyanosis no claudication normal pulses] : Female genitalia Musculoskeletal: [No joint erythema, edema or tenderness.] Skin: [No rash.] Neurologic: [No lateralizing deficits. CN II - XII grossly intact.] Lymphatic: [No adenopathy.] Assessment: Hospitalized earlier this year for Coban 19 patient completely recovered from it Stress echo normal EKG by EKG criteria normal by echocardiogram criteria Patient discharged home on current blood pressure meds We will reevaluate in 3-5 days or sooner if symptoms require Patient Condition at Discharge: Stable Plan - Discharge Summary Discharge Rx Participant: No New Discharge Prescriptions: No Action DULoxetine HCL [Cymbalta] 30 mg PO HS Melatonin 10 mg PO HS hydroCHLOROthiazide [Hydrodiuril] 25 mg PO HS clonazePAM [KlonoPIN] 0.5 mg PO DAILY PRN PRN Reason: Anxiety DULoxetine HCL [Cymbalta] 60 mg PO HS Bisoprolol Fumarate [Zebeta] 10 mg PO HS Aspirin EC [Ecotrin Low Dose] 81 mg PO Q48H Discharge Medication List DULoxetine HCL [Cymbalta] 30 mg PO HS 03/11/19 [History] Melatonin 10 mg PO HS 03/11/19 [History] Aspirin EC [Ecotrin Low Dose] 81 mg PO Q48H 10/10/19 [History] Bisoprolol Fumarate [Zebeta] 10 mg PO HS 10/10/19 [History] DULoxetine HCL [Cymbalta] 60 mg PO HS 10/10/19 [History] clonazePAM [KlonoPIN] 0.5 mg PO DAILY PRN 10/10/19 [History] hydroCHLOROthiazide [Hydrodiuril] 25 mg PO HS 10/10/19 [History] Follow up Appointment(s)/Referral(s): Marco Mantilla MD [Primary Care Provider] - 1-2 days
== END 2019-10-12 18:15 | disposition home or self-care (01) | DRG 313 ==
LOC: EC 14:50 → 3NCARDOBS 16:44 → OBSVTOIN 10-12 11:27
PROVIDERS: ADMIT Family Medicine; ATTEND Family Medicine
DX: R07.89 Other chest pain (principal); R06.02 Shortness of breath; M19.90 Unspecified osteoarthritis, unspecified site; F32.9 Major depressive disorder, single episode, unspecified; F41.9 Anxiety disorder, unspecified; I10 Essential (primary) hypertension; Z20.828 Contact with and (suspected) exposure to other viral communicable diseases; Z79.899 Other long term (current) drug therapy; Z88.6 Allergy status to analgesic agent; Z98.890 Other specified postprocedural states
CPT/HCPCS: 36415; 71046; 80053; 80061; 83735; 83880; 84484; 85025; 85379; 85610; 85730; 93005; 93351; 96361; 96374; 99285

== ENCOUNTER → 2020-12-23 | Outpatient (CLI) | payer OTHER | END | disposition home or self-care (01) | LOC: LABWHC1 06:10 | PROVIDERS: ATTEND Emergency Medicine | DX: Z20.822 Contact with and (suspected) exposure to COVID-19 (principal) | CPT/HCPCS: 87635 ==

== ENCOUNTER → 2020-12-27 | Outpatient (CLI) | payer OTHER | END | disposition home or self-care (01) | LOC: LABWHC1 07:43 | PROVIDERS: ATTEND Emergency Medicine | DX: Z20.822 Contact with and (suspected) exposure to COVID-19 (principal) | CPT/HCPCS: 87635 ==

== ENCOUNTER → 2021-01-10 | Outpatient (CLI) | payer OTHER | LOC: CPPFTMAIN 12:05 | PROVIDERS: ATTEND Family Medicine | DX: R06.02 Shortness of breath (principal) | CPT/HCPCS: 94060; 94726; 94729 ==

== ENCOUNTER → 2021-06-12 | Outpatient (CLI) | payer OTHER ==
--- NOTE | 2021-06-20 13:33 | MM ---
Reason for exam: screening (asymptomatic). Last mammogram was performed 13 years and 6 months ago. History: Reductions of both breasts, 2018. Took hormonal contraceptives for 3 years. Physical Findings: A clinical breast exam by your physician is recommended on an annual basis and results should be correlated with mammographic findings. MG 3D Screening Mammo W/Cad Bilateral CC and MLO view(s) were taken. Prior study comparison: February 28, 2017, mammogram, performed at [facility]. There are scattered fibroglandular densities. Finding: There are typically benign round, diffuse/scattered calcifications in both breasts. No significant changes in finding since February 28, 2017. ASSESSMENT: Benign, BI-RAD 2 RECOMMENDATION: Routine screening mammogram of both breasts in 1 year.
== END | disposition home or self-care (01) ==
LOC: RADMAMWWP 15:12
PROVIDERS: ATTEND Family Medicine
DX: Z12.31 Encounter for screening mammogram for malignant neoplasm of breast (principal)
CPT/HCPCS: 77063; 77067

== ENCOUNTER 2021-09-11 12:29 | Emergency (ER) | payer OTHER ==
[2021-09-11 12:49] VITALS: BP 122/81; PULSE 87; TEMP 98.7
[2021-09-11 13:19] VITALS: RESP 20
--- NOTE | 2021-09-11 13:41 | ED ---
General Adult HPI - General Chief complaint: Upper Respiratory Infection Stated complaint: Covid+,Wants antibodies Time Seen by Provider: 09/11/21 13:03 Source: patient, family, RN notes reviewed Mode of arrival: ambulatory Limitations: no limitations - History of Present Illness Initial comments: This a 55-year-old female presents emergency Department chief complaint of positive COVID-19. Patient states symptoms started 5 days ago. Patient states that she has mild cough and cold-like symptoms. Mild GI symptoms. Patient states she is here for [place] antibodies patient offers no other sniffing past medical history. - Related Data Home Medications Medication Instructions Recorded Confirmed DULoxetine HCL [Cymbalta] 30 mg PO HS 03/11/19 10/10/19 Melatonin [Melatonin ER] 10 mg PO HS 03/11/19 10/10/19 Aspirin EC [Ecotrin Low Dose] 81 mg PO Q48H 10/10/19 10/10/19 Bisoprolol Fumarate [Zebeta] 10 mg PO HS 10/10/19 10/10/19 DULoxetine HCL [Cymbalta] 60 mg PO HS 10/10/19 10/10/19 clonazePAM [KlonoPIN] 0.5 mg PO DAILY PRN 10/10/19 10/10/19 hydroCHLOROthiazide [Hydrodiuril] 25 mg PO HS 10/10/19 10/10/19 Allergies Allergy/AdvReac Type Severity Reaction Status Date / Time meloxicam [From Mobic] Allergy Unknown Verified 09/11/21 12:49 Review of Systems ROS Statement: Those systems with pertinent positive or pertinent negative responses have been documented in the HPI. ROS Other: All systems not noted in ROS Statement are negative. Past Medical History Past Medical History: Hypertension, Osteoarthritis (OA) History of Any Multi-Drug Resistant Organisms: None Reported Past Surgical History: Breast Surgery, Orthopedic Surgery Additional Past Surgical History / Comment(s): Breast reduction, bilateral carpal tunnel release, A-1 gerhard release. left rotator cuff repair Past Anesthesia/Blood Transfusion Reactions: Motion Sickness, Postoperative Jaguar sea & Vomiting (PONV) Past Psychological History: Anxiety, Depression Smoking Status: Never smoker Past Alcohol Use History: Rare Past Drug Use History: None Reported - Past Family History Mother Family Medical History: No Reported History General Exam Limitations: no limitations General appearance: alert, in no apparent distress Head exam: Present: atraumatic, normocephalic, normal inspection Eye exam: Present: normal appearance, PERRL, EOMI. Absent: scleral icterus, conjunctival injection, periorbital swelling ENT exam: Present: normal exam, normal oropharynx, mucous membranes moist Neck exam: Present: normal inspection, full ROM. Absent: tenderness, meningismus, lymphadenopathy Respiratory exam: Present: normal lung sounds bilaterally. Absent: respiratory distress, wheezes, rales, rhonchi, stridor Cardiovascular Exam: Present: regular rate, normal rhythm, normal heart sounds. Absent: systolic murmur, diastolic murmur, rubs, gallop, clicks GI/Abdominal exam: Present: soft, normal bowel sounds. Absent: distended, tenderness, guarding, rebound, rigid Course Vital Signs 09/11/21 09/11/21 12:45 13:15 Temperature 98.7 F Pulse Rate 87 Respiratory 18 20 Rate Blood Pressure 122/81 O2 Sat by Pulse 97 Oximetry Medical Decision Making - Medical Decision Making Patient received monoclonal antibodies will be discharged in stable condition return parameters were discussed. Disposition Clinical Impression: COVID-19 Disposition: HOME SELF-CARE Condition: Stable Instructions (If sedation given, give patient instructions): COVID-19 (Coronavirus Disease 2019) (ED) Additional Instructions: Please return to the Emergency Department if symptoms worsen or any other concerns. Is patient prescribed a controlled substance at d/c from ED?: No Referrals: Tre Roth Jr, DO [Primary Care Provider] - 1-2 days Time of Disposition: 13:41
[2021-09-11] MEDS ORDERED: BEBTELOVIMAB (EUA) 175 MG/2 ML VIAL IV ONE (14:00)
== END 2021-09-11 15:25 | disposition home or self-care (01) ==
LOC: EC 12:29
DX: U07.1 COVID-19 (principal); I10 Essential (primary) hypertension; M19.90 Unspecified osteoarthritis, unspecified site; F41.9 Anxiety disorder, unspecified; F32.A Depression, unspecified; Z79.82 Long term (current) use of aspirin; Z79.899 Other long term (current) drug therapy
CPT/HCPCS: 99283; Q0222

== ENCOUNTER → 2022-03-06 | Outpatient (CLI) | payer BC ==
[2022-03-06 14:36] LABS: Basophils # (A) 0.09 X 10*3/uL (0.00-0.10); Basophils % (A) 1.5 %; Eosinophils # (A) 0.26 X 10*3/uL (0.04-0.35); Eosinophils % (A) 4.3 %; HCT 39.4 % (37.2-46.3); HGB 13.9 g/dL (12.0-15.0); Immature Grans, Automated 0.2 %; Lymphocytes # (A) 2.24 X 10*3/uL (0.90-5.00); Lymphocytes % (A) 36.7 %; MCH 31.4 pg (27.0-32.0); MCHC 35.3 g/dL (32.0-37.0); MCV 88.9 fL (80.0-97.0); Mean Platelet Volume 10.3 fL (9.5-12.2); Monocytes # (A) 0.33 X 10*3/uL (0.20-1.00); Monocytes % (A) 5.4 %; NRBC Per 100 WBC 0 /100 WBCS (0.0-0.0); Neutrophils # (A) 3.17 X 10*3/uL (1.80-7.70); Neutrophils % (A) 51.9 %; Platelet Count 310 X 10*3/uL (140-440); RBC 4.43 X 10*6/uL (4.10-5.20); RDW 12.1 % (11.5-14.5)
[2022-03-06 16:32] LABS: ALT 49 U/L (8-44); AST 31 U/L (13-35); African American GFR (CKD) 96.4 (60.0-200.0); Albumin 4.5 g/dL (3.8-4.9); Albumin/Globulin Ratio 1.75 (1.60-3.17); Alkaline Phosphatase 77 U/L (41-126); BUN/Creat Ratio 19.24 Ratio (12.00-20.00); Blood Urea Nitrogen 15.1 mg/dL (9.0-27.0); Calcium 9.4 mg/dL (8.7-10.3); Carbon Dioxide 23.5 mmol/L (20.0-27.5); Chloride 107 mmol/L (96-109); Globulin 2.6 g/dL (1.6-3.3); Glucose 120 mg/dL (70-110); LDL Cholesterol,Calculated 127.8 mg/dL (0.0-131.0); Non-African American GFR(CKD) 83.2 (60.0-200.0); Potassium 4.1 mmol/L (3.5-5.5); Sodium 143 mmol/L (135-145); Total Protein 7.1 g/dL (6.2-8.2)
== END | disposition home or self-care (01) ==
LOC: LABWHC1 10:30
PROVIDERS: ATTEND Nurse Practitioner Family
DX: Z00.00 Encounter for general adult medical examination without abnormal findings (principal); I10 Essential (primary) hypertension; E66.01 Morbid (severe) obesity due to excess calories; F41.8 Other specified anxiety disorders; Z68.41 Body mass index [BMI] 40.0-44.9, adult
CPT/HCPCS: 36415; 80053; 80061; 84439; 84443; 85025

== ENCOUNTER → 2024-09-02 | Outpatient (CLI) | payer BC, MEDICARE ==
--- NOTE | 2024-09-02 14:06 | MM ---
Reason for Exam: Screening (asymptomatic). Last mammogram was performed 3 year(s) and 3 month(s) ago. Patient History: Menarche at age 8. First Full-Term at age 19. Postmenopausal. Patient used Hormonal Contraceptives for 3 years. 2018, Bilateral Reduction. Risk Values: Apryl 5 year model risk: 1.4%. NCI Lifetime model risk: 7.2%. Prior Study Comparison: 12/16/2007 Bilateral Screening Mammogram, [facility]. 02/28/2017 Screening Mammogram, [facility] . 06/12/2021 Bilateral Screening Mammogram, [facility]. Tissue Density: The breasts are heterogeneously dense, which may obscure small masses. Findings: Analyzed By CAD. Postreduction mammoplasty. Chronic nodularity inferior left MLO view middle depth. Scattered areas will system fat necrosis calcification, increased now lower inner quadrant anterior right breast. Large focus of fat necrosis calcification anterior upper outer quadrant left breast is unchanged. Otherwise, there is an asymmetric density are also unchanged. There is no suspicious group of microcalcifications or new suspicious mass in either breast. Overall Assessment: Benign, BI-RAD 2 Management: Screening Mammogram of both breasts in 1 year. Patient should continue monthly self-breast exams. A clinical breast exam by your physician is recommended on an annual basis. This exam should not preclude additional follow-up of suspicious palpable abnormalities. Note on Apryl scores and lifetime risk: 1. A Apryl score greater than 3% is considered moderate risk. If this is the case, consider specialist referral to assess eligibility for a risk reducing agent. 2. If overall lifetime risk for the development of breast cancer is 20% or higher, the patient may qualify for future screening with alternating mammogram and breast MRI. [facility], , 09/02/2024 2:02 PM. Electronically signed and approved by: Jennifer Sun M.D. Radiologist
== END | disposition home or self-care (01) ==
LOC: RADMAMWWP 08:55
PROVIDERS: ATTEND Family Medicine
DX: Z12.31 Encounter for screening mammogram for malignant neoplasm of breast (principal); R92.333 Mammographic heterogeneous density, bilateral breasts; Z78.0 Asymptomatic menopausal state; Z92.0 Personal history of contraception
CPT/HCPCS: 77063; 77067